=== PATIENT | male | born 2000 | race Caucasian/White ===

== ENCOUNTER 2022-12-27 09:56 | Observation (INO) ==
[2022-12-27] MEDS ORDERED: KETOROLAC TROMETHAMINE 15 MG/ML VIAL IV ONE (10:35)
--- NOTE | 2022-12-27 10:36 | Emergency Department Note ---
History of Present Illness General Chief complaint: Chest Pain Stated complaint: CHEST PAIN Time Seen by Provider: 12/27/22 10:22 History of Present Illness Maximum Pain Intensity: 7 This is a 22-year-old male that presents to the emergency department via private vehicle referred by [facility] with complaints of "chest pain". The patient notes that he awoke around 2 AM with some back pain and a headache. He then noted that around 3 AM he began with pain all over his body and diffuse body aches as well as chest pain. No trauma or injury that he is aware of. No shortness of breath. No cough. No hemoptysis. 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 He notes no surgery as of yet, noting he believes that in his case surgery was optional. Patient notes that he did have several tests performed at [facility] previously for the AVM. Patient notes that he has otherwise been doing well. He notes that he is currently at the [facility] for evaluation of suicidal thoughts. Patient notes that he is there on a 201 voluntary status. He denies any suicidal ideations at the present time. Reportedly in route patient received 1 nitroglycerin as well as 324 of aspirin. Symptoms are nonexertional. No history of OH or PE. No vertigo. No anticoagulant use. Home Medications Medication Instructions Recorded Confirmed Type acetaminophen 500 mg tablet 1,000 mg PO Q6H PRN Pain 12/27/22 12/27/22 History (Tylenol Extra Strength) Allergies Allergy/AdvReac Type Severity Reaction Status Date / Time methylphenidate AdvReac Muscle Verified 12/27/22 14:03 [From Concerta] twitches Past Med/Surg History Medical History (Updated 12/27/22 @ 21:16 by Franco Okeefe PA-C) Hx of arteriovenous malformation (AVM) Surgical History No pertinent past surgical history Social History Smoking Status: Never smoker Feels Safe at Home: Yes Review of Systems A total of 10 systems reviewed and were otherwise negative Physical Exam Vital Signs Vital Signs - 24 hr 12/27/22 09:59 12/27/22 10:19 12/27/22 10:13 Temperature 37.4 C Temperature Source Oral Pulse Rate 77 79 76 Pulse Rate [Apical] Pulse Rate from SpO2 Sensor 77 Pulse Rhythm [Apical] Respiratory Rate 18 18 Respiratory Effort / Characteristics Non-Labored Spontaneous Respiratory Depth Normal Respiratory Pattern Regular Blood Pressure 153/92 H Blood Pressure [Right Arm] Blood Pressure Mean 112 Blood Pressure Mean [Right Arm] Blood Pressure Position [Right Arm] Pulse Oximetry 98 96 Oxygen Delivery Method Room Air Sepsis Recent Fever Within 48 Hours No Sepsis New/Unexplained Change in Mental Status N/A Sepsis Action Taken by Nursing No Action Required 12/27/22 10:30 12/27/22 10:30 12/27/22 11:00 Temperature Temperature Source Pulse Rate 85 Pulse Rate [Apical] Pulse Rate from SpO2 Sensor 86 Pulse Rhythm [Apical] Respiratory Rate 18 Respiratory Effort / Characteristics Respiratory Depth Respiratory Pattern Blood Pressure 143/69 H 123/71 Blood Pressure [Right Arm] Blood Pressure Mean 93 88 Blood Pressure Mean [Right Arm] Blood Pressure Position [Right Arm] Pulse Oximetry 96 Oxygen Delivery Method Sepsis Recent Fever Within 48 Hours Sepsis New/Unexplained Change in Mental Status Sepsis Action Taken by Nursing 12/27/22 11:00 12/27/22 13:09 12/27/22 14:21 Temperature Temperature Source Pulse Rate 71 90 Pulse Rate [Apical] 62 Pulse Rate from SpO2 Sensor 81 Pulse Rhythm [Apical] Regular Respiratory Rate 19 18 Respiratory Effort / Characteristics Non-Labored Spontaneous Respiratory Depth Normal Respiratory Pattern Regular Blood Pressure Blood Pressure [Right Arm] 109/61 Blood Pressure Mean Blood Pressure Mean [Right Arm] 77 Blood Pressure Position [Right Arm] Lying Pulse Oximetry 96 94 Oxygen Delivery Method Room Air Sepsis Recent Fever Within 48 Hours Sepsis New/Unexplained Change in Mental Status Sepsis Action Taken by Nursing 12/27/22 15:09 Temperature Temperature Source Pulse Rate Pulse Rate [Apical] 114 H Pulse Rate from SpO2 Sensor Pulse Rhythm [Apical] Respiratory Rate 16 Respiratory Effort / Characteristics Non-Labored Spontaneous Respiratory Depth Normal Respiratory Pattern Regular Blood Pressure Blood Pressure [Right Arm] 129/82 Blood Pressure Mean Blood Pressure Mean [Right Arm] 97 Blood Pressure Position [Right Arm] Lying Pulse Oximetry 97 Oxygen Delivery Method Room Air Sepsis Recent Fever Within 48 Hours Sepsis New/Unexplained Change in Mental Status Sepsis Action Taken by Nursing VITAL SIGNS - Vital signs and nursing notes were reviewed. Stable and afebrile. GENERAL - 22-year-old male appearing his stated age who is in no acute distress. Communicates well with provider and answers questions appropriately. SKIN - Without rashes. No meningeal or petechial rash. HEAD - NC/AT. EYES - PERRL with EOMI bilaterally. Sclera anicteric. EARS - No deformities of external structures noted on gross examination bila terally. External auditory canals without discharge or otorrhea. Tympanic membranes pearly agrawal without retraction or bulging. No fluid or purulent material visualized behind the TM. Handle of malleus, umbo, cone of light, pars tensa/flaccid all easily visualized. NOSE - Midline and without cyanosis. No epistaxis or purulent drainage noted. Septum midline without deviation or septal hematoma noted. MOUTH/OROPHARYNX - Without perioral cyanosis. Buccal mucosa pink and moist and without leukoplakia. Tongue midline with equal elevation of palate bilaterally. No tonsillar hypertrophy, erythema, or exudates noted. Good dentition noted. NECK - Neck with FROM. Supple to palpation. No lymphadenopathy noted. No nuchal rigidity. LUNGS - Chest wall symmetric without accessory muscle use, intercostals retractions, or central cyanosis. Normal vesicular breath sounds CTA B/L. No wheezes, rales, or rhonchi appreciated. CARDIAC - RRR ABDOMEN - Abdominal contour normal without pulsations or visible masses. BS normoactive all four quadrants. No tenderness, palpable masses, hepatosplenomegaly, or ascites noted. EXTREMITIES - No clubbing or peripheral cyanosis. +5/5 strength noted in UE/LE bilaterally. NEUROLOGIC - Cranial nerves II through XII grossly intact. No deficits. Patient able to independently stand and ambulate. PSYCH - A&Ox3 and cooperates fully with examiner. Pt is very pleasant and interacts well with examiner. Course Administered Medications Discontinued Medications Sodium Chloride (Nss 1000ml) 1,000 mls @ 999 mls/hr IV .Q1H1M STEVE Stop: 12/27/22 14:45 Last Infusion: 12/27/22 14:45 Dose: 0 mls/hr Documented By: Admin: 12/27/22 13:38 Dose: 999 mls/hr Documented By: Ioversol (Optiray 320 125ml) 119 ml IV ONCE ONE Stop: 12/27/22 16:25 Last Admin: 12/27/22 16:24 Dose: 119 ml Documented By: ISABELLE Ketorolac Tromethamine (Ketorolac Tromethamine 15 Mg/Ml Vial) 10 mg IV NOW ONE Stop: 12/27/22 10:36 Last Admin: 12/27/22 10:51 Dose: 10 mg Documented By: KELECHI Medical Decision Making Laboratory Data 12/27/22 10:03 12/27/22 10:03 Lab Results 12/27/22 12/27/22 12/27/22 Range/Units 10:03 10:03 10:03 WBC 6.75 (4.8-10.8) K/ul RBC 5.84 (4.70-6.10) M/uL Hgb 16.8 (14.0-18.0) g/dl Hct 47.6 (42.0-52.0) % MCV 81.5 (80.0-100.0) fL MCH 28.8 (25.0-34.0) pg MCHC 35.3 (32.0-36.0) g/dL RDW Std Deviation 38.5 (36.4-46.3) fL RDW Coeff of Wilfredo 13.2 (11.5-14.5) % Plt Count 231 (130-400) K/uL MPV 10.5 (9.4-12.4) fL Immature Gran % (Auto) 1.0 % Neut % (Auto) 46.8 % Lymph % (Auto) 43.4 % Gates % (Auto) 7.1 % Eos % (Auto) 1.3 % Baso % (Auto) 0.4 % Neut # (Auto) 3.15 (1.40-6.50) K/uL Lymph # (Auto) 2.93 (1.2-3.4) K/uL Gates # (Auto) 0.48 (0.11-0.59) K/uL Eos # (Auto) 0.09 (0-0.50) K/uL Baso # (Auto) 0.03 (0-0.2) K/uL Immature Gran # (Auto) 0.07 (0.01-0.20) K/uL PT 11.3 (9.0-12.0) Seconds INR 1.0 (0.9-1.1) APTT 29.8 (21.0-31.0) Seconds PTT Ratio 1.1 D-Dimer < 190 (0-500) ug/L FEU Sodium 137 (136-145) mmol/L Potassium 3.3 L (3.5-5.1) mmol/L Chloride 102 (98-107) mmol/L Carbon Dioxide 30 (21-32) mmol/L Anion Gap 5 (3-11) BUN 12 (6-23) mg/dl Creatinine 0.98 (0.6-1.4) mg/dl Est Cr Clr Drug Dosing 135.1 ml/min Est GFR ( Amer) 124.6 ml/min Est GFR (Non-Af Amer) 107.5 ml/min BUN/Creatinine Ratio 12.2 (10-20) Glucose 69 L (70-99(Fasting)) mg/dl POC Glucose (70-99) mg/dl Calcium 9.5 (8.6-10.3) mg/dl Magnesium 2.2 (1.7-2.4) mg/dl Total Bilirubin 0.7 (0.2-1.0) mg/dl AST 22 (13-39) U/L ALT 31 (7-52) U/L Alkaline Phosphatase 64 (34-104) U/L Troponin I High Sens 5.8 (0-20) pg/ml Total Protein 7.5 (6.0-8.3) gm/dl Albumin 4.7 (3.4-5.0) gm/dl Globulin 2.8 (2.5-4.0) gm/dl Albumin/Globulin Ratio 1.7 (0.9-2) Urine Color Urine Appearance (Clear) Urine pH (4.5-7.5) Ur Specific [place] (1.000-1.030) Urine Protein (Negative) Urine Glucose (UA) (Negative) Urine Ketones (Negative) Urine Blood (Negative) Urine Nitrite (Negative) Urine Bilirubin (Negative) Urine Urobilinogen (Negative) Ur Leukocyte Esterase (Negative) Urine Opiates Screen (Neg) Ur Methadone, Qual (Neg) Urine Barbiturates (Neg) Ur Phencyclidine (PCP) (Neg) U Amphetamin/Meth Scrn (Neg) MDMA (Ecstasy) Screen (Neg) U Benzodiazepines Scrn (Neg) Ur Cocaine Metabolite (Neg) U Marijuana (THC) Screen (Neg) Adenovirus (PCR) (NotDetected) Anaplasma Smear See Comment B. pertussis DNA (PCR) (NotDetected) B.parapertussis DNA PCR (NotDetected) Lyme Disease IgG Ab (Negative) Lyme Disease IgM Ab (Negative) C. pneumoniae DNA (PCR) (NotDetected) Coronavirus OC43 (PCR) (NotDetected) Coronavirus HKU1 (PCR) (NotDetected) Coronavirus 229E (PCR) (NotDetected) SARS-CoV-2 (PCR) (NotDetected) Coronavirus NL63 (PCR) (NotDetected) Human Metapneumovir PCR (NotDetected) Influenza Type A (PCR) (NotDetected) Influenza Type B (PCR) (NotDetected) M. pneumoniae (PCR) (NotDetected) Parainfluenza 1 (PCR) (NotDetected) Parainfluenza 2 (PCR) (NotDetected) Parainfluenza 3 (PCR) (NotDetected) Parainfluenza 4 (PCR) (NotDetected) RSV (PCR) (NotDetected) Entero/Rhino (PCR) (NotDetected) 12/27/22 12/27/22 12/27/22 Range/Units 10:03 12:59 13:10 WBC (4.8-10.8) K/ul RBC (4.70-6.10) M/uL Hgb (14.0-18.0) g/dl Hct (42.0-52.0) % MCV (80.0-100.0) fL MCH (25.0-34.0) pg MCHC (32.0-36.0) g/dL RDW Std Deviation (36.4-46.3) fL RDW Coeff of Wilfredo (11.5-14.5) % Plt Count (130-400) K/uL MPV (9.4-12.4) fL Immature Gran % (Auto) % Neut % (Auto) % Lymph % (Auto) % Gates % (Auto) % Eos % (Auto) % Baso % (Auto) % Neut # (Auto) (1.40-6.50) K/uL Lymph # (Auto) (1.2-3.4) K/uL Gates # (Auto) (0.11-0.59) K/uL Eos # (Auto) (0-0.50) K/uL Baso # (Auto) (0-0.2) K/uL Immature Gran # (Auto) (0.01-0.20) K/uL PT (9.0-12.0) Seconds INR (0.9-1.1) APTT (21.0-31.0) Seconds PTT Ratio D-Dimer (0-500) ug/L FEU Sodium (136-145) mmol/L Potassium (3.5-5.1) mmol/L Chloride (98-107) mmol/L Carbon Dioxide (21-32) mmol/L Anion Gap (3-11) BUN (6-23) mg/dl Creatinine (0.6-1.4) mg/dl Est Cr Clr Drug Dosing ml/min Est GFR ( Amer) ml/min Est GFR (Non-Af Amer) ml/min BUN/Creatinine Ratio (10-20) Glucose (70-99(Fasting)) mg/dl POC Glucose (70-99) mg/dl Calcium (8.6-10.3) mg/dl Magnesium (1.7-2.4) mg/dl Total Bilirubin (0.2-1.0) mg/dl AST (13-39) U/L ALT (7-52) U/L Alkaline Phosphatase (34-104) U/L Troponin I High Sens 4.2 (0-20) pg/ml Total Protein (6.0-8.3) gm/dl Albumin (3.4-5.0) gm/dl Globulin (2.5-4.0) gm/dl Albumin/Globulin Ratio (0.9-2) Urine Color Urine Appearance (Clear) Urine pH (4.5-7.5) Ur Specific [place] (1.000-1.030) Urine Protein (Negative) Urine Glucose (UA) (Negative) Urine Ketones (Negative) Urine Blood (Negative) Urine Nitrite (Negative) Urine Bilirubin (Negative) Urine Urobilinogen (Negative) Ur Leukocyte Esterase (Negative) Urine Opiates Screen (Neg) Ur Methadone, Qual (Neg) Urine Barbiturates (Neg) Ur Phencyclidine (PCP) (Neg) U Amphetamin/Meth Scrn (Neg) MDMA (Ecstasy) Screen (Neg) U Benzodiazepines Scrn (Neg) Ur Cocaine Metabolite (Neg) U Marijuana (THC) Screen (Neg) Adenovirus (PCR) Not Detected (NotDetected) Anaplasma Smear B. pertussis DNA (PCR) Not Detected (NotDetected) B.parapertussis DNA PCR Not Detected (NotDetected) Lyme Disease IgG Ab Negative (Negative) Lyme Disease IgM Ab Negative (Negative) C. pneumoniae DNA (PCR) Not Detected (NotDetected) Coronavirus OC43 (PCR) Not Detected (NotDetected) Coronavirus HKU1 (PCR) Not Detected (NotDetected) Coronavirus 229E (PCR) Not Detected (NotDetected) SARS-CoV-2 (PCR) Not Detected (NotDetected) Coronavirus NL63 (PCR) Not Detected (NotDetected) Human Metapneumovir PCR Not Detected (NotDetected) Influenza Type A (PCR) Not Detected (NotDetected) Influenza Type B (PCR) Not Detected (NotDetected) M. pneumoniae (PCR) Not Detected (NotDetected) Parainfluenza 1 (PCR) Not Detected (NotDetected) Parainfluenza 2 (PCR) Not Detected (NotDetected) Parainfluenza 3 (PCR) Not Detected (NotDetected) Parainfluenza 4 (PCR) Not Detected (NotDetected) RSV (PCR) Not Detected (NotDetected) Entero/Rhino (PCR) Not Detected (NotDetected) 12/27/22 12/27/22 12/27/22 Range/Units 14:30 14:30 15:25 WBC (4.8-10.8) K/ul RBC (4.70-6.10) M/uL Hgb (14.0-18.0) g/dl Hct (42.0-52.0) % MCV (80.0-100.0) fL MCH (25.0-34.0) pg MCHC (32.0-36.0) g/dL RDW Std Deviation (36.4-46.3) fL RDW Coeff of Wilfredo (11.5-14.5) % Plt Count (130-400) K/uL MPV (9.4-12.4) fL Immature Gran % (Auto) % Neut % (Auto) % Lymph % (Auto) % Gates % (Auto) % Eos % (Auto) % Baso % (Auto) % Neut # (Auto) (1.40-6.50) K/uL Lymph # (Auto) (1.2-3.4) K/uL [place] # (Auto) (0.11-0.59) K/uL Eos # (Auto) (0-0.50) K/uL Baso # (Auto) (0-0.2) K/uL Immature Gran # (Auto) (0.01-0.20) K/uL PT (9.0-12.0) Seconds INR (0.9-1.1) APTT (21.0-31.0) Seconds PTT Ratio D-Dimer (0-500) ug/L FEU Sodium (136-145) mmol/L Potassium (3.5-5.1) mmol/L Chloride (98-107) mmol/L Carbon Dioxide (21-32) mmol/L Anion Gap (3-11) BUN (6-23) mg/dl Creatinine (0.6-1.4) mg/dl Est Cr Clr Drug Dosing ml/min Est GFR ( Amer) ml/min Est GFR (Non-Af Amer) ml/min BUN/Creatinine Ratio (10-20) Glucose (70-99(Fasting)) mg/dl POC Glucose 86 (70-99) mg/dl Calcium (8.6-10.3) mg/dl Magnesium (1.7-2.4) mg/dl Total Bilirubin (0.2-1.0) mg/dl AST (13-39) U/L ALT (7-52) U/L Alkaline Phosphatase (34-104) U/L Troponin I High Sens (0-20) pg/ml Total Protein (6.0-8.3) gm/dl Albumin (3.4-5.0) gm/dl Globulin (2.5-4.0) gm/dl Albumin/Globulin Ratio (0.9-2) Urine Color Yellow Urine Appearance Clear (Clear) Urine pH 7.0 (4.5-7.5) Ur Specific [place] 1.009 (1.000-1.030) Urine Protein Negative (Negative) Urine Glucose (UA) Negative (Negative) Urine Ketones Negative (Negative) Urine Blood Negative (Negative) Urine Nitrite Negative (Negative) Urine Bilirubin Negative (Negative) Urine Urobilinogen Negative (Negative) Ur Leukocyte Esterase Negative (Negative) Urine Opiates Screen Neg (Neg) Ur Methadone, Qual Neg (Neg) Urine Barbiturates Neg (Neg) Ur Phencyclidine (PCP) Neg (Neg) U Amphetamin/Meth Scrn Neg (Neg) MDMA (Ecstasy) Screen Neg (Neg) U Benzodiazepines Scrn Neg (Neg) Ur Cocaine Metabolite Neg (Neg) U Marijuana (THC) Screen Neg (Neg) Adenovirus (PCR) (NotDetected) Anaplasma Smear B. pertussis DNA (PCR) (NotDetected) B.parapertussis DNA PCR (NotDetected) Lyme Disease IgG Ab (Negative) Lyme Disease IgM Ab (Negative) C. pneumoniae DNA (PCR) (NotDetected) Coronavirus OC43 (PCR) (NotDetected) Coronavirus HKU1 (PCR) (NotDetected) Coronavirus 229E (PCR) (NotDetected) SARS-CoV-2 (PCR) (NotDetected) Coronavirus NL63 (PCR) (NotDetected) Human Metapneumovir PCR (NotDetected) Influenza Type A (PCR) (NotDetected) Influenza Type B (PCR) (NotDetected) M. pneumoniae (PCR) (NotDetected) Parainfluenza 1 (PCR) (NotDetected) Parainfluenza 2 (PCR) (NotDetected) Parainfluenza 3 (PCR) (NotDetected) Parainfluenza 4 (PCR) (NotDetected) RSV (PCR) (NotDetected) Entero/Rhino (PCR) (NotDetected) 12/27/22 Range/Units 15:53 WBC (4.8-10.8) K/ul RBC (4.70-6.10) M/uL Hgb (14.0-18.0) g/dl Hct (42.0-52.0) % MCV (80.0-100.0) fL MCH (25.0-34.0) pg MCHC (32.0-36.0) g/dL RDW Std Deviation (36.4-46.3) fL RDW Coeff of Wilfredo (11.5-14.5) % Plt Count (130-400) K/uL MPV (9.4-12.4) fL Immature Gran % (Auto) % Neut % (Auto) % Lymph % (Auto) % [place] % (Auto) % Eos % (Auto) % Baso % (Auto) % Neut # (Auto) (1.40-6.50) K/uL Lymph # (Auto) (1.2-3.4) K/uL [place] # (Auto) (0.11-0.59) K/uL Eos # (Auto) (0-0.50) K/uL Baso # (Auto) (0-0.2) K/uL Immature Gran # (Auto) (0.01-0.20) K/uL PT (9.0-12.0) Seconds INR (0.9-1.1) APTT (21.0-31.0) Seconds PTT Ratio D-Dimer (0-500) ug/L FEU Sodium (136-145) mmol/L Potassium (3.5-5.1) mmol/L Chloride (98-107) mmol/L Carbon Dioxide (21-32) mmol/L Anion Gap (3-11) BUN (6-23) mg/dl Creatinine (0.6-1.4) mg/dl Est Cr Clr Drug Dosing ml/min Est GFR ( Amer) ml/min Est GFR (Non-Af Amer) ml/min BUN/Creatinine Ratio (10-20) Glucose (70-99(Fasting)) mg/dl POC Glucose 91 (70-99) mg/dl Calcium (8.6-10.3) mg/dl Magnesium (1.7-2.4) mg/dl Total Bilirubin (0.2-1.0) mg/dl AST (13-39) U/L ALT (7-52) U/L Alkaline Phosphatase (34-104) U/L Troponin I High Sens (0-20) pg/ml Total Protein (6.0-8.3) gm/dl Albumin (3.4-5.0) gm/dl Globulin (2.5-4.0) gm/dl Albumin/Globulin Ratio (0.9-2) Urine Color Urine Appearance (Clear) Urine pH (4.5-7.5) Ur Specific [place] (1.000-1.030) Urine Protein (Negative) Urine Glucose (UA) (Negative) Urine Ketones (Negative) Urine Blood (Negative) Urine Nitrite (Negative) Urine Bilirubin (Negative) Urine Urobilinogen (Negative) Ur Leukocyte Esterase (Negative) Urine Opiates Screen (Neg) Ur Methadone, Qual (Neg) Urine Barbiturates (Neg) Ur Phencyclidine (PCP) (Neg) U Amphetamin/Meth Scrn (Neg) MDMA (Ecstasy) Screen (Neg) U Benzodiazepines Scrn (Neg) Ur Cocaine Metabolite (Neg) U Marijuana (THC) Screen (Neg) Adenovirus (PCR) (NotDetected) Anaplasma Smear B. pertussis DNA (PCR) (NotDetected) B.parapertussis DNA PCR (NotDetected) Lyme Disease IgG Ab (Negative) Lyme Disease IgM Ab (Negative) C. pneumoniae DNA (PCR) (NotDetected) Coronavirus OC43 (PCR) (NotDetected) Coronavirus HKU1 (PCR) (NotDetected) Coronavirus 229E (PCR) (NotDetected) SARS-CoV-2 (PCR) (NotDetected) Coronavirus NL63 (PCR) (NotDetected) Human Metapneumovir PCR (NotDetected) Influenza Type A (PCR) (NotDetected) Influenza Type B (PCR) (NotDetected) M. pneumoniae (PCR) (NotDetected) Parainfluenza 1 (PCR) (NotDetected) Parainfluenza 2 (PCR) (NotDetected) Parainfluenza 3 (PCR) (NotDetected) Parainfluenza 4 (PCR) (NotDetected) RSV (PCR) (NotDetected) Entero/Rhino (PCR) (NotDetected) Imaging Data Radiologist's Impression: Chest X-Ray 12/27/22 10:34 XR chest 1V portable CLINICAL HISTORY: Atypical chest pain. COMPARISON STUDY: No previous studies for comparison. FINDINGS: Lung volumes are normal. Lungs are clear. There is no pneumothorax or pleural effusion. Cardiac size is normal. Mediastinal contours are normal. There is no evidence for pulmonary edema. Interstitial prominence is probably within normal limits. IMPRESSION: No acute cardiopulmonary findings. ACT 112: Negative or not required by law. Electronically signed by: Breezy Avery M.D. 12/27/2022 10:[address] 12/27/22 12:30 CT OF THE HEAD WITHOUT CONTRAST CLINICAL HISTORY: Headache. COMPARISON STUDY: No previous studies for comparison. CT DOSE: 703.85 mGy.cm TECHNIQUE: Helical axial images of the head were obtained without IV contrast. Automated exposure control was utilized for the study. A dose lowering technique was utilized adhering to the principles of ALARA. FINDINGS: No acute intracranial hemorrhage, midline shift or mass effect is present. The ventricular system is unremarkable. The basal cisterns are patent. No extra-axial collections are present. There are no findings to suggest acute dural sinus thrombosis or acute territorial infarct. No significant calvarial abnormalities are present. Visualized portions of the sinuses and mastoid air cells are clear. IMPRESSION: No acute intracranial findings. ACT 112: Negative or not required by law. Electronically signed by: Breezy Avery M.D. 12/27/2022 12:53 PM Head CTA 12/27/22 16:04 CT ANGIOGRAM OF THE BRAIN; CT ANGIOGRAM OF THE NECK CLINICAL HISTORY: Lightheadedness. Near syncope. COMPARISON STUDY: Unenhanced CT of the brain performed the same day 12/28/2027. TECHNIQUE: Following the IV administration of 119 of Optiray 320, CT angiogram of the head and neck was performed from the aortic arch to the vertex. Images are reviewed in the axial, sagittal, and coronal planes. 3-D MIPS images are created and assessed. IV contrast was administered without complication. All measurements were calculated based on NASCET criteria. A dose lowering techn ique was utilized adhering to the principles of ALARA. FINDINGS: Brain parenchyma: The brain parenchyma is normal in appearance. There is no evidence of hemorrhage, mass effect, or acute territorial ischemia noting angiographic phase technique. There is no evidence of enhancing mass lesion on the angiogram phase images. The ventricles, sulci, and cisterns are normal in configuration. Agrawal-white matter differentiation is preserved. No extra-axial fluid collection is seen. Thoracic aorta: Visualized portions of the thoracic aorta are normal in caliber. The aortic arch demonstrates 3-vessel variant anatomy. There is a bovine arch, and the left vertebral artery arises directly from the thoracic aorta. Right carotid arterial system: The right common carotid artery is widely patent, as are the right internal and external carotid arteries. Left carotid arterial system: The left common carotid artery is widely patent, as are the left internal and external carotid arteries. Vertebral arteries: The vertebral arteries are widely patent bilaterally noting right sided dominance. Subclavian arteries: Widely patent bilaterally. Intracranial vasculature: The internal carotid arteries are patent at the skull base, as are the anterior and middle cerebral arteries bilaterally. The vertebrobasilar system and posterior cerebral arteries are widely patent. The right vertebral artery is dominant. There is a large right posterior communicating artery. There is no aneurysm, high-grade stenosis, or focal vessel cut off seen throughout the intracranial circulation. Jugular veins: Patent bilaterally. Dural sinuses: The dural venous sinuses are patent. The left transverse sinus is diminutive. Lung apices: Partially visualized upper lobe lung parenchyma appears clear. Soft tissues: The visualized pharyngeal soft tissues are normal in appearance noting angiographic phase technique. The oropharyngeal airway appears widely patent. The salivary and thyroid glands are normal in appearance. No cervical lymphadenopathy is seen. Skeletal structures: The calvarium appears intact. The cervical spine is within normal limits. Orbits: The bony orbits are intact. Orbital contents are normal as visualized. Sinuses and mastoids: There is trace mucosal thickening in the left maxillary antrum. The remaining paranasal sinuses are clear. The mastoid air cells are well pneumatized. IMPRESSION: 1. There is no evidence of hemorrhage, mass effect, or acute territorial ischemia noting angiographic phase technique. 2. Unremarkable CT angiogram of the brain. 3. Unremarkable CT angiogram of the neck. ACT 112: Negative or not required by law. Electronically signed by: Alex Boykin M.D. 12/27/2022 4:43 PM Neck CTA 12/27/22 16:04 CT ANGIOGRAM OF THE BRAIN; CT ANGIOGRAM OF THE NECK CLINICAL HISTORY: Lightheadedness. Near syncope. COMPARISON STUDY: Unenhanced CT of the brain performed the same day 12/28/2027. TECHNIQUE: Following the IV administration of 119 of Optiray 320, CT angiogram of the head and neck was performed from the aortic arch to the vertex. Images are reviewed in the axial, sagittal, and coronal planes. 3-D MIPS images are created and assessed. IV contrast was administered without complication. All measurements were calculated based on NASCET criteria. A dose lowering technique was utilized adhering to the principles of ALARA. FINDINGS: Brain parenchyma: The brain parenchyma is normal in appearance. There is no evidence of hemorrhage, mass effect, or acute territorial ischemia noting angiographic phase technique. There is no evidence of enhancing mass lesion on the angiogram phase images. The ventricles, sulci, and cisterns are normal in configuration. Agrawal-white matter differentiation is preserved. No extra-axial fluid collection is seen. Thoracic aorta: Visualized portions of the thoracic aorta are normal in caliber. The aortic arch demonstrates 3-vessel variant anatomy. There is a bovine arch, and the left vertebral artery arises directly from the thoracic aorta. Right carotid arterial system: The right common carotid artery is widely patent, as are the right internal and external carotid arteries. Left carotid arterial system: The left common carotid artery is widely patent, as are the left internal and external carotid arteries. Vertebral arteries: The vertebral arteries are widely patent bilaterally noting right sided dominance. Subclavian arteries: Widely patent bilaterally. Intracranial vasculature: The internal carotid arteries are patent at the skull base, as are the anterior and middle cerebral arteries bilaterally. The vertebrobasilar system and posterior cerebral arteries are widely patent. The right vertebral artery is dominant. There is a large right posterior communicating artery. There is no aneurysm, high-grade stenosis, or focal vessel cut off seen throughout the intracranial circulation. Jugular veins: Patent bilaterally. Dural sinuses: The dural venous sinuses are patent. The left transverse sinus is diminutive. Lung apices: Partially visualized upper lobe lung parenchyma appears clear. Soft tissues: The visualized pharyngeal soft tissues are normal in appearance noting angiographic phase technique. The oropharyngeal airway appears widely patent. The salivary and thyroid glands are normal in appearance. No cervical lymphadenopathy is seen. Skeletal structures: The calvarium appears intact. The cervical spine is within normal limits. Orbits: The bony orbits are intact. Orbital contents are normal as visualized. Sinuses and mastoids: There is trace mucosal thickening in the left maxillary antrum. The remaining paranasal sinuses are clear. The mastoid air cells are well pneumatized. IMPRESSION: 1. There is no evidence of hemorrhage, mass effect, or acute territorial ischemia noting angiographic phase technique. 2. Unremarkable CT angiogram of the brain. 3. Unremarkable CT angiogram of the neck. ACT 112: Negative or not required by law. Electronically signed by: Alex Boykin M.D. 12/27/2022 4:43 PM Chest CTA 12/27/22 16:14 CT angio chest w con CT DOSE: 1223.15 mGy.cm CLINICAL HISTORY: Atypical chest pain, hx of pulmonary AVM TECHNIQUE: Multiaxial CT images of the chest were performed following the intravenous administration of 119 cc of Optiray 320 to evaluate the aorta. Sagittal and coronal maximum intensity projection images were also obtained at the workstation by the radiologist. A dose lowering technique was utilized adhering to the principles of ALARA. COMPARISON STUDY: None. FINDINGS: Normal caliber thoracic aorta with no evidence for a dissection. The heart is top normal in size. The main pulmonary artery is dilated up to 3.9 cm. This is consistent with pulmonary arterial hypertension. The study was not protocoled to assess for a pulmonary embolus. However, the central pulmonary arteries appear patent. There is a right middle lobe pulmonary AVM. The dilated vessels measure up to 8 mm in diameter and appear patent. The thyroid gland enhances normally. Normal esophagus. No pleural or pericardial effusions. No mediastinal or hilar lymphadenopathy. Limited views of the upper abdomen demonstrate a normal liver, spleen, adrenal glands. No acute fractures identified. No pneumothorax. The central airways are patent. No focal lung consolidations to suggest a pneumonia. No evidence for pulmonary edema. There is a punctate calcified granuloma within the right upper lobe. IMPRESSION: 1. No evidence for an aortic dissection. 2. Dilated main pulmonary artery consistent with pulmonary arterial hypertension. 3. No evidence for a central pulmonary embolus. 4. Incidental note is made of a right middle lobe pulmonary AVM. ACT 112: Negative or not required by law. Electronically signed by: Casey Fuller M.D. 12/27/2022 4:49 PM MDM Narrative Patient was seen and evaluated as above in room A03. Review was performed of triage nursing notes and vital signs. I did review accompanying medical record as provided by [facility]. Patient has several symptoms that began earlier today. He notes back pain, headache, followed by diffuse body ach es and then chest pain. Patient does not have any shortness of breath or cough. There is no hemoptysis. Patient has a history of pulmonary AVM. On examination patient is clinically well-appearing and nontoxic. He is speaking in full sentences. He is in no acute distress. After obtaining a thorough history and physical examination the above work up was performed. Options of care were discussed with the patient. IV access was established. Labs were performed. Labs reveal no leukocytosis or concerning anemia. No emergent metabolic disturbance. Mild hypokalemia 3.3. Glucose found to be 69 and the patient was provided some yogi crackers here and saltine crackers as well as Powerade. Repeat glucose within normal limits. Troponin was obtained x2 here in the ED and was found to be within normal range both times. D-dimer normal as well. The patient underwent Lyme testing here and this was also negative. Anaplasmosis smear negative. Anaplasma send out test currently pending. Bio fire panel returned negative. Patient also underwent a chest x- ray here which was within normal limits. Patient was medicated with IV Toradol for his discomfort with improvement of discomfort but headache persisted. This is diffuse in nature without signs of trauma or injury. There is no evidence of CVA on examination. Patient has not had much to eat or drink today. IV fluids were ordered in addition to CT scan of the head. CT scan of the head was negative. Patient was reassessed multiple times and did note that he felt lightheaded when he would stand and move. This was despite intravenous fluids and oral rehydration here in the ED. The patient did note on reassessment that he attempted to go to the bathroom and while ambulating nearly fell and had to catch himself. It is important note the patient did not fall. Noting the persistence of near syncopal/lightheaded episodes with ambulation and standing, I do believe that further evaluation and management in the inpatient setting is warranted. Case discussed with the hospitalist service. Upon discussion of the case with hospitalist service recommendation was to proceed with CT angio head and neck which was added. Hospitalist also had a CT angio of the chest. Please refer to further documentation regarding his stay. EKG was obtained and reveals normal sinus rhythm at a rate of 81 bpm. QTc 425. QRS 120. No ST elevation. T wave inversion lead III, V1. GCS: 15 In the evaluation and treatment of this patient the following differential diagnoses were entertained: Dehydration, CVA, TIA, orthostatic hypotension, electrolyte disturbance, viral illness, Lyme disease, complication of pulmonary AVM, among others. Impression & Plan Chest pain, Light-headedness, Headache, Pulmonary arteriovenous malformation Discharge Plan Visit Data Chief Complaint: Chest Pain Stated Complaint: CHEST PAIN ED Provider: Familia Alberto ED Midlevel Provider: Franco Okeefe Discharge Problem: Chest pain, Light-headedness, Headache, Pulmonary arteriovenous malformation Patient Disposition: Admitted As Inpatient Condition: Good Discharge Instructions Interventions: ED Discharge Assessment Last Done: 12/27/22 19:58
--- NOTE | 2022-12-27 10:57 | XRay Report ---
XR chest 1V portable CLINICAL HISTORY: Atypical chest pain. COMPARISON STUDY: No previous studies for comparison. FINDINGS: Lung volumes are normal. Lungs are clear. There is no pneumothorax or pleural effusion. Car diac size is normal. Mediastinal contours are normal. There is no evidence for pulmonary edema. Inter stitial prominence is probably within normal limits. IMPRESSION: No acute cardiopulmonary findings. ACT 112: Negative or not required by law. Electronically signed by: Breezy Avery M.D. 12/27/2022 10:56 AM
[2022-12-27 11:27] LABS: Basophils # (auto) 0.03 K/uL (0-0.2); Basophils % (auto) 0.4 %; Eosinophils # (auto) 0.09 K/uL (0-0.50); Eosinophils % (auto) 1.3 %; Hematocrit (blood only) 47.6 % (42.0-52.0); Hemoglobin 16.8 g/dl (14.0-18.0); Immature Granulocytes # (auto) 0.07 K/uL (0.01-0.20); Lymphocytes # (auto) 2.93 K/uL (1.2-3.4); Lymphocytes % (auto) 43.4 %; Mean Corpuscular Hemoglobin 28.8 pg (25.0-34.0); Mean Corpuscular Hgb Conc 35.3 g/dL (32.0-36.0); Mean Corpuscular Volume 81.5 fL (80.0-100.0); Mean Platelet Volume 10.5 fL (9.4-12.4); Monocytes # (auto) 0.48 K/uL (0.11-0.59); Monocytes % (auto) 7.1 %; Neutrophils # (auto) 3.15 K/uL (1.40-6.50); Neutrophils % (auto) 46.8 %; Platelet Count 231 K/uL (130-400); RDW Coefficient of Variation 13.2 % (11.5-14.5); RDW Standard Deviation 38.5 fL (36.4-46.3); Red Blood Count 5.84 M/uL (4.70-6.10); White Blood Count 6.75 K/ul (4.8-10.8)
[2022-12-27 11:38] LABS: Albumin Globulin Ratio 1.7 (0.9-2); Albumin Level 4.7 gm/dl (3.4-5.0); BUN Creatinine Ratio 12.2 (10-20); Bilirubin,Total 0.7 mg/dl (0.2-1.0); Calcium 9.5 mg/dl (8.6-10.3); Creatinine Clr Calc Pharmacy 135.1 ml/min; Est GFR (African American) 124.6 ml/min; Est GFR (Non-African American) 107.5 ml/min; Globulin 2.8 gm/dl (2.5-4.0); Magnesium 2.2 mg/dl (1.7-2.4); Potassium 3.3 mmol/L (3.5-5.1); Total Protein 7.5 gm/dl (6.0-8.3)
[2022-12-27 11:45] LABS: Troponin I High Sensitivity 5.8 pg/ml (0-20)
[2022-12-27 11:46] LABS: D Dimer < 190 ug/L FEU (0-500); Partial Thromboplastin Ratio 1.1; Partial Thromboplastin Time 29.8 Seconds (21.0-31.0); Prothrombin Time 11.3 Seconds (9.0-12.0)
[2022-12-27 12:22] LABS: Lyme Ab IgG w/WB Rflx Negative (Negative)
[2022-12-27 12:23] LABS: Lyme Ab IgM w/WB Rflx Negative (Negative)
--- NOTE | 2022-12-27 12:55 | CT Scan Report ---
CT OF THE HEAD WITHOUT CONTRAST CLINICAL HISTORY: Headache. COMPARISON STUDY: No previous studies for comparison. CT DOSE: 703.85 mGy.cm TECHNIQUE: Helical axial images of the head were obtained without IV contrast. Automated exposure con trol was utilized for the study. A dose lowering technique was utilized adhering to the principles o f ALARA. FINDINGS: No acute intracranial hemorrhage, midline shift or mass effect is present. The ventricular system is unremarkable. The basal cisterns are patent. No extra-axial collections are present. There are no findings to suggest acute dural sinus thrombosis or acute territorial infarct. No significant calvarial abnormalities are present. Visualized portions of the sinuses and mastoid air cells are machelle ar. IMPRESSION: No acute intracranial findings. ACT 112: Negative or not required by law. Electronically signed by: Breezy Avery M.D. 12/27/2022 12:53 PM
[2022-12-27] MEDS ORDERED: SODIUM CHLORIDE 0.9% 1000ML 1,000 ML IV SCH (13:45)
[2022-12-27 14:13] LABS: Adenovirus PCR Not Detected (NotDetected); Bordetella parapertussis PCR Not Detected (NotDetected); Bordetella pertussis PCR Not Detected (NotDetected); Chlamydia pneumoniae PCR Not Detected (NotDetected); Coronavirus 229E PCR Not Detected (NotDetected); Coronavirus CoV-2 (COVID19)PCR Not Detected (NotDetected); Coronavirus HKU1 PCR Not Detected (NotDetected); Coronavirus NL63 PCR Not Detected (NotDetected); Coronavirus OC43PCR Not Detected (NotDetected); Human Metapneumovirus PCR Not Detected (NotDetected); Influenza A PCR Not Detected (NotDetected); Influenza B PCR Not Detected (NotDetected); Mycoplasma pneumoniae PCR Not Detected (NotDetected); Parainfluenza Virus 1 PCR Not Detected (NotDetected); Parainfluenza Virus 2 PCR Not Detected (NotDetected); Parainfluenza Virus 3 PCR Not Detected (NotDetected); Parainfluenza Virus 4 PCR Not Detected (NotDetected); Respiratory Syncytial VirusPCR Not Detected (NotDetected); Rhinovirus/Enterovirus PCR Not Detected (NotDetected)
[2022-12-27 14:48] LABS: Appearance Urine Clear (Clear); Bilirubin Urine Negative (Negative); Blood Urine Negative (Negative); Color Urine Yellow; Glucose Urine UA Negative (Negative); Ketones Urine Negative (Negative); Leukocyte Esterase Urine Negative (Negative); Nitrite Urine Negative (Negative); Protein Urine Negative (Negative); Specific Gravity Urine 1.009 (1.000-1.030); Urobilinogen Urine Negative (Negative)
[2022-12-27] MEDS ORDERED: OPTIRAY 320 125ml IV ONE (16:24)
--- NOTE | 2022-12-27 16:24 | History & Physical Report ---
Date of Service December 27, 2022 Assessment & Plan (1) Pre-syncope: Plan: Presyncope with vision change DDx includes orthostasis, vertebrobasilar syndrome. Symptoms are not reversible and are not vertiginous. No hearing change or tinnitus With blurred vision and presyncope without vertigo, and symptoms occurring sometimes with but also in absence of hypotension/standing CTAhead and neck are pending which is extended down to the chest as have not been able to obtain records of his AVM and given his presenting chest pain is reasonable to include this in the evaluation EKG: Normal sinus rhythm, RSR prime suggestive of RV conduction delay. No territorial ST segment changes or T wave inversions. QTc 425. SC 168. Echo pending CTA of the head and neck normal as noted below We will give fluids, follow symptomatically, and obtain echo patient is below Pulmonary AVM CTA-C: 1. No evidence for an aortic dissection. 2. Dilated main pulmonary artery consistent with pulmonary arterial hypertension. 3. No evidence for a central pulmonary embolus. 4. Incidental note is made of a right middle lobe pulmonary AVM. - CTA-H/N: 1. There is no evidence of hemorrhage, mass effect, or acute territorial ischemia noting angiographic phase technique. 2. Unremarkable CT angiogram of the brain.3. Unremarkable CT angiogram of the neck. - AVM RML pulm 8mm in diameter and patent w/ pHTN Patient is no chest pain at the bedside evaluation however given his prior sy mptoms, pulmonary hypertension and 8 mm caliber he should be seen for follow-up for shunt studies and coil/embolization. Recommend following up with Dr. Muse IR as outpt if stable. Patient reports he had 1x outpatient follow-up, but saw someone once and then was lost to follow-up and does not have any scheduled follow-up appointments. Did not think that another appointment was recommended to his knowledge but isn't sure. Depression/anxiety Denies active SI/HI. Reports he has had passive thoughts of suicide which is why he presented to the [facility], but more feels he wants treatment of depression and denies current passive or active SI Reports he feels comfortable reaching out if thoughts of SI develop or worsen, and is future oriented with a goal of getting to the [facility] to treat his depression. Can spot check, defer one-to-on. Patient is with speech with normal prosody, and is a goal-directed linear thought process - Would like to return to [facility] as 201 when stable to do so (2) Hx of arteriovenous malformation (AVM): History of Present Illness Primary Care Provider: Madhav Gasca Don is a 22-year-old male with history of depression who presents to the [facility]. He presents from the [facility] by private vehicle where he was for depression and concerns of passive suicidality, denies active SI/HI and reports he does not have current SI. He notes that he does want to continue treatment for his depression, but this was interrupted by chest pain. He notes that he was seen in [facility] previously for an AVM, but does not know the details regarding this. He reports that he has had lightheadedness and dizziness to some blurred vision on attempted standing and ambulation. Blood pressure is normally in the 120s, is currently in the high 90s. He denies fever, chills, sweats, nausea, vomiting, diarrhea, cough, dysuria, polyuria, diarrhea, constipation. He does endorse intermittent episodes of a feeling of nearly passing out without any room spinning or vertigo which seems to be with exertion but does not always induced By standing up. He reports he has had episodes of severe up to 10/10 chest pain which he attributes to the AVM, while he was walking today and at bedside reports he does not have any chest pain or chest pressure. He has not had any hemoptysis. He reports after Tylenol his initial discomfort improved and again is not in pain at the bedside, it is more his symptoms of nearly passing out which are distressing to him. He does not have any photo or phono sensitivity. His neck does not hurt, and has no pain in his neck on flexion. Denies any limb pain, numbness/tingling. Denies any recent tobacco use, denies recreational substance use, denies vape use. Reports he drinks alcohol intermittently socially, said no alcohol in the last week Medical History: Reviewed Medications: Reviewed Surgical History: Reviewed Family history: Reviewed Allergies: Reviewed Social History: As noted Code Status: Full Allergies Allergy/AdvReac Type Severity Reaction Status Date / Time methylphenidate AdvReac Muscle Verified 12/27/22 14:03 [From EVERFANSa] twitches Home Medications Medication Instructions Recorded Confirmed Type acetaminophen 500 mg tablet 1,000 mg PO Q6H PRN Pain 12/27/22 12/27/22 History (Tylenol Extra Strength) Past Med/Surg History Medical History (Updated 12/27/22 @ 16:22 by Richard Loomis MD) Hx of arteriovenous malformation (AVM) Surgical History No pertinent past surgical history Social History Smoking Status: Never smoker Feels Safe at Home: Yes Review of Systems Review of Systems: All systems reviewed & are unremarkable except as noted in HPI & below Physical Exam Physical Exam: General: A&Ox3. NAD. Cooperative. Answers questions appropriately HEENT: Atraumatic, normocephalic. Vision and hearing grossly intact. No nystagmus Pulm: CTAB A&P. -wheezes, -rales, -rhonchi. Symmetrical chest rise. No increased work of breathing. No respiratory distress. Cardiac: RRR, -mrg. Radial pulses intact and symmetrical. No overlying chest wall tender Abdominal: Nontender, nondistended, soft. BS present. Extremities: Warm, dry. Moves all extremities equally. Sensation soft touch intact in hands and Results & Data Results & Data Vital Signs (Past 12 Hours) Vital Signs Temp Pulse Pulse Resp BP BP Pulse Ox 12/27/22 15:09 114 H 16 129/82 97 12/27/22 14:21 90 12/27/22 13:09 62 18 109/61 94 12/27/22 11:00 71 19 96 12/27/22 11:00 123/71 12/27/22 10:30 85 18 96 12/27/22 10:30 143/69 H 12/27/22 10:13 76 18 96 12/27/22 10:19 79 12/27/22 09:59 37.4 C 77 18 153/92 H 98 O2 Del Method 12/27/22 15:09 Room Air 12/27/22 14:21 12/27/22 13:09 Room Air 12/27/22 11:00 12/27/22 11:00 12/27/22 10:30 12/27/22 10:30 12/27/22 10:13 12/27/22 10:19 12/27/22 09:59 Room Air PG Care Time/CCT Total # of Minutes Spent Total Time Spent with Patient: Total time spent is greater than 50% in coordination of care (as documented) at patient's floor/unit and/or counseling patient: Coding Level of Care Code 96153 INT INP/OBS CARE 2/55MIN Diagnoses Pre-syncope R55 Hx of arteriovenous malformation (AVM) Z87.74
--- NOTE | 2022-12-27 16:45 | CT Scan Report ---
CT ANGIOGRAM OF THE BRAIN; CT ANGIOGRAM OF THE NECK CLINICAL HISTORY: Lightheadedness. Near syncope. COMPARISON STUDY: Unenhanced CT of the brain performed the same day 12/28/2027. TECHNIQUE: Following the IV administration of 119 of Optiray 320, CT angiogram of the head and neck w as performed from the aortic arch to the vertex. Images are reviewed in the axial, sagittal, and risa nal planes. 3-D MIPS images are created and assessed. IV contrast was administered without complicati on. All measurements were calculated based on NASCET criteria. A dose lowering technique was utilize d adhering to the principles of ALARA. FINDINGS: Brain parenchyma: The brain parenchyma is normal in appearance. There is no evidence of hemorrhage, m ass effect, or acute territorial ischemia noting angiographic phase technique. There is no evidence o f enhancing mass lesion on the angiogram phase images. The ventricles, sulci, and cisterns are normal in configuration. Agrawal-white matter differentiation is preserved. No extra-axial fluid collection is seen. Thoracic aorta: Visualized portions of the thoracic aorta are normal in caliber. The aortic arch demo nstrates 3-vessel variant anatomy. There is a bovine arch, and the left vertebral artery arises direc tly from the thoracic aorta. Right carotid arterial system: The right common carotid artery is widely patent, as are the right int ernal and external carotid arteries. Left carotid arterial system: The left common carotid artery is widely patent, as are the left internal grinding machine operator al and external carotid arteries. Vertebral arteries: The vertebral arteries are widely patent bilaterally noting right sided dominance . Subclavian arteries: Widely patent bilaterally. Intracranial vasculature: The internal carotid arteries are patent at the skull base, as are the ante rior and middle cerebral arteries bilaterally. The vertebrobasilar system and posterior cerebral koffi margie are widely patent. The right vertebral artery is dominant. There is a large right posterior comm unicating artery. There is no aneurysm, high-grade stenosis, or focal vessel cut off seen throughout the intracranial circulation. Jugular veins: Patent bilaterally. Dural sinuses: The dural venous sinuses are patent. The left transverse sinus is diminutive. Lung apices: Partially visualized upper lobe lung parenchyma appears clear. Soft tissues: The visualized pharyngeal soft tissues are normal in appearance noting angiographic pha se technique. The oropharyngeal airway appears widely patent. The salivary and thyroid glands are nor mal in appearance. No cervical lymphadenopathy is seen. Skeletal structures: The calvarium appears intact. The cervical spine is within normal limits. Orbits: The bony orbits are intact. Orbital contents are normal as visualized. Sinuses and mastoids: There is trace mucosal thickening in the left maxillary antrum. The remaining p aranasal sinuses are clear. The mastoid air cells are well pneumatized. IMPRESSION: 1. There is no evidence of hemorrhage, mass effect, or acute territorial ischemia noting angiographic phase technique. 2. Unremarkable CT angiogram of the brain. 3. Unremarkable CT angiogram of the neck. ACT 112: Negative or not required by law. Electronically signed by: Alex Boykin M.D. 12/27/2022 4:43 PM
[2022-12-27 16:51] LABS: Amphetamines+Metham, Urine Neg (Neg); Barbiturates, Urine Neg (Neg); Benzodiazepine, Urine Neg (Neg); Cocaine, Urine Neg (Neg); MDMA (Ecstacy), Urine Neg (Neg); Methadone, Urine Neg (Neg); Opiate, Urine Neg (Neg); Phencyclidine, Urine Neg (Neg)
--- NOTE | 2022-12-27 16:51 | CT Scan Report ---
CT angio chest w con CT DOSE: 1223.15 mGy.cm CLINICAL HISTORY: Atypical chest pain, hx of pulmonary AVM TECHNIQUE: Multiaxial CT images of the chest were performed following the intravenous administration of 119 cc of Optiray 320 to evaluate the aorta. Sagittal and coronal maximum intensity projection herminio ges were also obtained at the workstation by the radiologist. A dose lowering technique was utilized adhering to the principles of ALARA. COMPARISON STUDY: None. FINDINGS: Normal caliber thoracic aorta with no evidence for a dissection. The heart is top normal in size. The main pulmonary artery is dilated up to 3.9 cm. This is consistent with pulmonary arterial hypertension. The study was not protocoled to assess for a pulmonary embolus. However, the central pu lmonary arteries appear patent. There is a right middle lobe pulmonary AVM. The dilated vessels measu re up to 8 mm in diameter and appear patent. The thyroid gland enhances normally. Normal esophagus. N o pleural or pericardial effusions. No mediastinal or hilar lymphadenopathy. Limited views of the upp er abdomen demonstrate a normal liver, spleen, adrenal glands. No acute fractures identified. No pneu mothorax. The central airways are patent. No focal lung consolidations to suggest a pneumonia. No kermit dence for pulmonary edema. There is a punctate calcified granuloma within the right upper lobe. IMPRESSION: 1. No evidence for an aortic dissection. 2. Dilated main pulmonary artery consistent with pulmonary arterial hypertension. 3. No evidence for a central pulmonary embolus. 4. Incidental note is made of a right middle lobe pulmonary AVM. ACT 112: Negative or not required by law. Electronically signed by: Casey Fuller M.D. 12/27/2022 4:49 PM
--- NOTE | 2022-12-27 23:33 | Electrocardiogram Report ---
Test Reason : Blood Pressure : / mmHG Vent. Rate : 081 BPM Atrial Rate : 081 BPM P-R Int : 168 ms QRS Dur : 120 ms QT Int : 366 ms P-R-T Axes : 040 -62 018 degrees QTc Int : 425 ms Normal sinus rhythm Right bundle branch block Left anterior fascicular block Abnormal ECG No previous ECGs available Confirmed by Bennie Yost ([id number]) on 12/27/2022 11:32:50 PM Referred By: Confirmed By:Bennie Yost
[2022-12-28] MEDS: ACETAMINOPHEN 325 MG TAB PO PRN ×3 (02:35→19:57)
[2022-12-28 07:17] LABS: Basophils # (auto) 0.04 K/uL (0-0.2); Basophils % (auto) 0.6 %; Eosinophils # (auto) 0.09 K/uL (0-0.50); Eosinophils % (auto) 1.4 %; Hematocrit (blood only) 45.8 % (42.0-52.0); Hemoglobin 15.9 g/dl (14.0-18.0); Immature Granulocytes # (auto) 0.01 K/uL (0.01-0.20); Immature Granulocytes % (auto) 0.2 %; Lymphocytes # (auto) 2.58 K/uL (1.2-3.4); Lymphocytes % (auto) 40.1 %; Mean Corpuscular Hemoglobin 28.5 pg (25.0-34.0); Mean Corpuscular Hgb Conc 34.7 g/dL (32.0-36.0); Mean Corpuscular Volume 82.2 fL (80.0-100.0); Mean Platelet Volume 9.9 fL (9.4-12.4); Monocytes # (auto) 0.49 K/uL (0.11-0.59); Monocytes % (auto) 7.6 %; Neutrophils # (auto) 3.23 K/uL (1.40-6.50); Neutrophils % (auto) 50.1 %; Platelet Count 225 K/uL (130-400); RDW Coefficient of Variation 12.9 % (11.5-14.5); RDW Standard Deviation 38.6 fL (36.4-46.3); Red Blood Count 5.57 M/uL (4.70-6.10); White Blood Count 6.44 K/ul (4.8-10.8)
[2022-12-28 07:47] LABS: BUN Creatinine Ratio 8.9 (10-20); Calcium 8.9 mg/dl (8.6-10.3); Creatinine Clr Calc Pharmacy 131.1 ml/min; Est GFR (African American) 120.1 ml/min; Est GFR (Non-African American) 103.6 ml/min; Potassium 3.8 mmol/L (3.5-5.1)
--- NOTE | 2022-12-28 10:43 | XCELERA ---
[id number]
[2022-12-28] MEDS ORDERED: KETOROLAC TROMETHAMINE 15 MG/ML VIAL IV PRN (16:33)
[2022-12-28] MEDS ORDERED: METOCLOPRAMIDE HCL INJ 5 MG/ML 2 ML VIAL IV PRN (16:33)
[2022-12-28] MEDS ORDERED: KETOROLAC 30 MG/ML VIAL IV ONE (16:33)
[2022-12-28] MEDS ORDERED: diphenhydrAMINE 50 MG/ML VIAL IV PRN (16:33)
[2022-12-28] MEDS ORDERED: MAGNESIUM SULFATE / D5W 1 GM/100 ML BAG IV ONE (16:38)
--- NOTE | 2022-12-28 16:38 | Hospitalist Progress Note ---
Date of Service December 28, 2022 Assessment & Plan (1) Migraine: Plan: with severe throbbing headache across his forehead and face, associated with dizziness with exertion that is not orthostatic With associated photophobia and phonophobia as well as nausea Not responding thus far to Tylenol With family history of migraines in his mother New in onset and ongoing for over 24 hours. Sitting in the dark room makes it better CT angiogram head and neck negative, CT head noncontrast negative Cranial nerve exam is normal -Check brain MRI with and without contrast-some motion artifact but otherwise normal -Give Toradol -Start Reglan and Benadryl together as needed for abortive therapy (2) Dizziness: Plan: Likely associated with migraine Echocardiogram normal, ECG is normal, Vital signs normal Continue to monitor (3) Chest pain: Plan: cardiac work-up all negative Suspect GI source-start Protonix Could also be related to anxiety (4) Depression: Plan: Depression/anxiety Denies active SI/HI. Reports he has had passive thoughts of suicide which is why he presented to the [facility], but more feels he wants treatment of depression and denies current passive or active SI Reports he feels comfortable reaching out if thoughts of SI develop or worsen, and is future oriented with a goal of getting to the [facility] to treat his depression. -He is considering going home instead of back to inpatient psychiatry -we will consult psychiatry for further evaluation (5) Hx of arteriovenous malformation (AVM): Plan: Pulmonary AVM CTA-C: 1. No evidence for an aortic dissection. 2. Dilated main pulmonary artery consistent with pulmonary arterial hypertension. 3. No evidence for a central pulmonary embolus. 4. Incidental note is made of a right middle lobe pulmonary AVM. - CTA-H/N: 1. There is no evidence of hemorrhage, mass effect, or acute territorial ischemia noting angiographic phase technique. 2. Unremarkable CT angiogram of the brain.3. Unremarkable CT angiogram of the neck. - AVM RML pulm 8mm in diameter and patent w/ pHTN - he should be seen for follow-up for shunt studies and coil/embolization. Recommend following up with Pulmonary and IR as outpt -[place] (6) RBBB: Plan: seen on ECG, unclear if new or chronic With dilated pulmonary artery on CT chest consistent with pulmonary hypertension, echocardiogram within normal limits Follow up as an outpatient Plan Disposition-continued stay, patient is now considering going home rather than back to inpatient psychiatry. Consult psych Admission and Anticipated Discharge Date Admission Date: December 27, 2022 Subjective Patient reports ongoing severe headache that started 2 nights ago when he was at the [facility] hospital the pain is waxing and waning a bit but mostly present all across his face and at times down the back of his neck into his back. He has photophobia and phonophobia. He also feels very dizzy anytime he gets up and walks around. He has had nausea intermittently but no vomiting. Denies any fevers or chills, no recent coughs or colds or illnesses. He does not have a history of migraine headaches but has had what sound like tension headaches in the past. No aura noted here. No other focal neurological symptoms. He is still having occasional twinges of sharp stabbing pain in the chest that go away within seconds to minutes. Cardiac work-up has been unrevealing.CT angiogram chest without dissection or PE, but does show his known 8 mm pulmonary AVM. No cough or hemoptysis. No diarrhea or abdominal pains, no urinary symptoms or joint pains. Physical Exam Constitutional: WD/WN, vitals as above Eyes: PERRL, conjunctivae normal, anicteric sclerae no nystagmus ENMT: external ear and nose normal, oropharynx normal Neck: trachea midline, no thyromegaly Respiratory: normal respiratory effort, lungs clear to auscultation Cardiovascular: RRR, no murmur, no edema Chest (Breasts): Chest: normal inspection of chest Gastrointestinal (Abdomen): normal bowel sounds, soft, nontender, no h epatosplenomegaly Musculoskeletal: Extremities: extremities normal to inspection; no cyanosis and no clubbing Skin: no rashes, warm and dry Neurologic: PERRL, EOMI, accommodation nl, no face palsy, no dysarthria CN's II-XI intact bilaterally, moves all extremities and awake; no focal motor deficits Lymphatic: no lymphedema Results & Data Results & Data Vital Signs (Past 12 Hours) Vital Signs Temp Pulse Resp BP Pulse Ox O2 Del Method 12/28/22 15:19 36.8 C 72 18 112/72 95 Room Air 12/28/22 12:14 67 18 112/67 96 Room Air 12/28/22 07:15 36.6 C 63 18 115/68 97 Room Air Laboratory Results BMP, CBC reviewed, troponin negative x2 Diagnostic Findings MRI brain negative PG Care Time/CCT Total # of Minutes Spent Total Time Spent with Patient: Total time spent is greater than 50% in coordination of care (as documented) at patient's floor/unit and/or counseling patient: Coding Level of Care Code 78808 SUB INP/OBS CARE 3/50MIN Diagnoses Migraine G43.909 Dizziness R42 Chest pain R07.9 Depression F32.A Hx of arteriovenous malformation (AVM) Z87.74 RBBB I45.10
[2022-12-28] MEDS: PANTOprazole 40 MG TAB PO SCH (17:13)
[2022-12-28] MEDS ORDERED: GADOBUTROL 10ML VIAL IV ONE (18:06)
--- NOTE | 2022-12-28 18:39 | Magnetic Resonance Report ---
MR brain wo/w con HISTORY: 22 years-old Male new severe headache,r/o mass acute migraine headache COMPARISON: 12/27/2022 TECHNIQUE: Multiplanar multisequence MRI of the brain was obtained both with and without the use of 9 .5 cc IV contrast. FINDINGS: Motion degraded exam. No restricted diffusion. Unremarkable appearance of the imaged midline structur es. No acute intracranial hemorrhage, midline shift, abnormal extra-axial collection, hydrocephalus o r intracranial mass. Cerebral venous sinuses and major arterial flow voids appear patent. Skull, orbi ts and soft tissues are unremarkable. Mastoid air cells and paranasal sinuses are generally clear. No abnormal enhancement. IMPRESSION: 1. Motion degraded exam without acute intracranial abnormality. 2. No abnormal enhancement. ACT 112: Negative or not required by law. The above report was generated using voice recognition software. It may contain grammatical, syntax o r spelling errors. Electronically signed by: Mike Jurado M.D. 12/28/2022 6:36 PM
[2022-12-29] MEDS: PANTOprazole 40 MG TAB PO SCH (10:34)
--- NOTE | 2022-12-29 10:34 | Psychiatric Consultation ---
Date of Consultation December 29, 2022 Impression / Recommendations Impression Diagnostically consistent with unspecified depressive episode with differential including MDD versus adjustment disorder with depressed mood versus BPAD current depressive episode versus PTSD. Given that he is not currently following with a PCP and concern for past episode of possible kristin do not recommend starting an SSRI for depression at this time. He is in agreement with this and with waiting to consider psychiatric medication until he meets with his new outpatient psychiatrist in 2 weeks. He would like to restart trazodone which helped him with insomnia in the past and since he finds this one of the biggest challenges of his depression he feels this would be very helpful. Reviewed side effects including sedation, priapism, increased appetite and black box warning for increased SI and need to stop the medication and seek emergent treatment if he felt unsafe. He doesn't meet involuntary psychiatric commitment criteria for 302 and is not interested in voluntary inpatient psychiatric treatment at the [facility] or elsewhere. Acute risk of self-harm is low given denial of SI, future-oriented, motivated to engage in outpatient care. Chronic risk is also low given no history of prior attempts and good outpatient support from family and roommate. (1) Depression: Plan -Safe for discharge from psychiatric standpoint -Consider starting trazodone 50mg HS prn for insomnia -He has outpatient psychiatry and therapy follow-up later this month -Discussed with Dr. Danielson Psych History Identifying Data 22 yo man with history of depression, PTSD, migraines, insomnia, pulmonary [facility]VM [facility] and possible pre-syncopal symptoms. Psychiatry consulted for disposition recommendations. Chief Complaint "I want to go home". History of Present Illness Don reports going to the [facility] for about 3 days prior to medical admission for depression and passive SI. However, since arriving to the [facility] he's not had any further passive SI, reports last thoughts about 5 days ago, and now that he is nearing medical stability would prefer to go home instead of returning to the [facility]. Discussed that he feels he is no longer in need of inpatient treatment, denies SI, and feels safe returning home. He set himself up [facility] outpatient psychiatry and therapy appointments at [facility] for the end of the month and feels comfortable with outpatient management of his depression. Continues to endorse some depression including insomnia but denies any hopelessness, is future-oriented and feels motivated to engage with outpatient services. Today states his mood is "pretty good". Psychiatric history reviewed and notable for possible episode of kristin during [employer] resulting in being dismissed from the and sent to a local inpatient psychiatric hospital in [place]. States at that time he was diagnosed with PTSD and given medications including trazodone but cannot recall the others. Stopped these shortly after discharge due to lack of insurance. [facility] hospitalization this week was his only other inpatient psych hospitalization. Denies any history of suicide attempts. Has a gun in his apartment but states it is secured in a gun safe and he doesn't know the combination. Counseled that if he began to have thoughts of suicide in the future recommendation would be for a friend or family member to remove the gun from the home which he states understanding and agreement with. Allergies Allergy/AdvReac Type Severity Reaction Status Date / Time methylphenidate AdvReac Muscle Verified 12/27/22 14:03 [From [employer]] twitches Home Medications Medication Instructions Recorded Confirmed Type acetaminophen 500 mg tablet 1,000 mg PO Q6H PRN Pain 12/27/22 12/27/22 History (Tylenol Extra Strength) ibuprofen 800 mg tablet 800 mg PO Q8H PRN pain or migraine 12/29/22 Rx #30 tabs magnesium 250 mg tablet 250 mg PO HS #30 tabs 12/29/22 Rx pantoprazole 40 mg tablet,delayed 40 mg PO QAM #30 tabs 12/29/22 Rx release riboflavin (vitamin B2) 100 mg 100 mg PO DAILY #30 tabs 12/29/22 Rx tablet trazodone 50 mg tablet 50 mg PO HS #30 tabs 12/29/22 Rx Patient History Medical History Depression Hx of arteriovenous malformation (AVM) RBBB Surgical History No pertinent past surgical history Social History Smoking Status: Never smoker Second Hand Exposure: No; Do You Dip or Chew Tobacco: No; Hx Alcohol Use: Yes Alcohol type: beer and hard liquor Hx Substance Use: No Preferred Language: Yakut Communication Ability: Effective Website Developer Required: No Beliefs That Will Affect Care: None Current Living Situation: Other Current Living Situation Comment: lives in trailer with a roommate, admitted from the [facility] Feels Safe at Home: Yes Assistive Devices: None Physical Exam Psychiatric: Orientation: alert and oriented x 3 Apperance: appropriately dressed and appropriately groomed Eye Contact: good eye contact Motor Behavior: no abnormal motor movements Speech: normal rate/rhythm/volume of speech Affect: + constricted affect Mood: + depressed mood; no anxious mood Thought Process: linear/logical thought process Thought Content: r eality based without delusions Suicidal Thoughts: denies suicidal thoughts Homicidal Thoughts: denies homicidal thoughts Hallucinations: no auditory hallucinations and no visual hallucinations Cognition: recent memory grossly intact, remote memory grossly intact, attention grossly intact and language grossly intact Estimated Intelligence: consistent with education level Insight: + fair insight Judgment: + fair judgement Vital Signs (Past 24 Hours): Last Vital Signs Temp 37 C 12/29/22 07:42 Pulse 49 L 12/29/22 07:42 Resp 18 12/29/22 07:42 BP 130/78 12/29/22 07:42 Pulse Ox 95 12/29/22 07:42 O2 Del Method Room Air 12/29/22 07:42 Review of Systems All systems reviewed & are unremarkable except as noted in HPI & below Results & Data (PSY) Medications Administered Acetaminophen (Acetaminophen 325 Mg Tab) 650 mg PO Q4H PRN PRN Reason: pain/fever Stop: 01/26/23 20:19 Last Admin: 12/28/22 19:57 Dose: 650 mg Documented By: LUIS FERNANDO Admin: 12/28/22 11:55 Dose: 650 mg Documented By: Admin: 12/28/22 02:35 Dose: 650 mg Documented By: LUIS FERNANDO Ketorolac Tromethamine (Ketorolac Tromethamine 15 Mg/Ml Vial) 15 mg IV Q6H PRN PRN Reason: Pain Stop: 01/02/23 16:32 Last Admin: 12/29/22 01:32 Dose: 15 mg Documented By: LUIS FERNANDO Pantoprazole Sodium (Pantoprazole 40 Mg Tab) 40 [facility] Stop: 12/31/22 09:01 Last Admin: 12/29/22 10:34 Dose: Not Given Documented By: Admin: 12/28/22 17:13 Dose: 40 mg Documented By: CARMENCITA Coding Level of Care Code 37129 IN/OBS CONSULT LVL 4,60M Diagnoses Depression F32.A Time Spent (min) 65
--- NOTE | 2022-12-29 11:56 | Discharge Summary ---
Discharge Summary Date of Service December 29, 2022 Notes For Next Care Provider Needs outpatient Pulmonology and Interventional Radiology follow up for pulmonary AVM Needs outpatient Psychiatry follow up Needs to get established with a PCP Medication Changes From Visit Added: magnesium oxide 250mg po hs riboflavin 100mg po daily ibuprofen 800mg po q8h prn migraine Protonix 40mg po qAM x 1 month trazodone 50mg po hs Admission HPI Per Admitting Provider Don is a 22-year-old male with history of depression who presents to the [facility]. He presents from [facility] by private vehicle where he was for depression and concerns of passive suicidality, denies active SI/HI and reports he does not have current SI. He notes that he does want to continue treatment for his depression, but this was interrupted by chest pain. He notes that he was seen in [facility] previously for an AVM, but does not know the details regarding this. He reports that he has had lightheadedness and dizziness to some blurred vision on attempted standing and ambulation. Blood pressure is normally in the 120s, is currently in the high 90s. He denies fever, chills, sweats, nausea, vomiting, diarrhea, cough, dysuria, polyuria, diarrhea, constipation. He does endorse intermittent episodes of a feeling of nearly passing out without any room spinning or vertigo which seems to be with exertion but does not always induced By standing up. He reports he has had episodes of severe up to 10/10 chest pain which he attributes to the AVM, while he was walking today and at bedside reports he does not have any chest pain or chest pressure. He has not had any hemoptysis. He reports after Tylenol his initial discomfort improved and again is not in pain at the bedside, it is more his symptoms of nearly passing out which are distressing to him. He does not have any photo or phono sensitivity. His neck does not hurt, and has no pain in his neck on flexion. Denies any limb pain, numbness/tingling. Denies any recent tobacco use, denies recreational substance use, denies vape use. Reports he drinks alcohol intermittently socially, said no alcohol in the last week Medical History: Reviewed Medications: Reviewed Surgical History: Reviewed Family history: Reviewed Allergies: Reviewed Social History: As noted Code Status: Full Principal Dx & Hospital Course #1 = Principal Diagnosis (1) Migraine: with severe throbbing headache across his forehead and face, associated with dizziness with exertion that is not orthostatic With associated photophobia and phonophobia as well as nausea Did not respond to Tylenol, but then greatly improved with IV toradol With family history of migraines in his mother New in onset and ongoing for over 24 hours at time of presentation. Sitting in the dark room makes it better CT angiogram head and neck negative, CT head noncontrast negative Cranial nerve exam is normal Brain MRI with and without contrast-some motion artifact but otherwise normal Improved dc to home with ibuprofen prn, magnesium and riboflavin for migraine prevention lack of sleep due to depression and insomnia likely trigger of migraine--> added trazodone hs (2) Dizziness: Likely associated with migraine Echocardiogram normal, ECG is normal, Vital signs normal resolved (3) Chest pain: cardiac work-up all negative-negative serial troponin, normal ECHO ECG with RBBB and LAFB CTA Chest neg for PE or dissection, but with 8mm AVM and dilated pulmonary artery --> needs outpt PULM follow up Suspect GI source such as esophagitis or gastritis with esophageal spasm-start Protonix and had resolution (4) Depression: Depression/anxiety Denies active SI/HI. Reports he has had passive thoughts of suicide which is why he presented to the [facility], but more feels he wants treatment of depression and denies current passive or active SI Reports he feels comfortable reaching out if thoughts of SI develop or worsen, and is future oriented with a goal of getting to the [facility] to treat his depression. -He is safe for discharge to home instead of back to inpatient psychiatry - consult psychiatry for further evaluation appreciated--> with likely need for SSRI but did not start as inpatient as he is being discharged and has no established PCP. Has appt with Psychiatry in a few weeks and can start then. Of note, he does have a possible history of manic symptoms so caution with SSRI For insomnia and depression---> start trazodone 50mg po hs which he has taken in the past and helped him. No SI/HI, stable for discharge to home (5) Hx of arteriovenous malformation (AVM): Pulmonary AVM CTA-C: 1. No evidence for an aortic dissection. 2. Dilated main pulmonary artery consistent with pulmonary arterial hypertension. 3. No evidence for a central pulmonary embolus. 4. Incidental note is made of a right middle lobe pulmonary AVM. - CTA-H/N: 1. There is no evidence of hemorrhage, mass effect, or acute territorial ischemia noting angiographic phase technique. 2. Unremarkable CT angiogram of the brain.3. Unremarkable CT angiogram of the neck. - AVM RML pulm 8mm in diameter and patent w/ pHTN - he should be seen for follow-up for shunt studies and coil/embolization. Recommend following up with Pulmonary and IR as outpt -he will do this in [place] at [facility] tertiary care (6) RBBB: seen on ECG, unclear if new or chronic With dilated pulmonary artery on CT chest consistent with pulmonary hypertension, echocardiogram within normal limits Follow up as an outpatient with Cardiology and PULM Plan Disposition-dc to home with mother picking him up Discharge Exam Constitutional WD/WN, vitals as above Eyes PERRL, conjunctivae normal, anicteric sclerae no nystagmus ENMT external ear and nose normal, oropharynx normal Neck trachea midline, no thyromegaly Respiratory normal respiratory effort, lungs clear to auscultation Cardiovascular RRR, no murmur, no edema Chest (Breasts) Chest: normal inspection of chest Gastrointestinal (Abdomen) normal bowel sounds, soft, nontender, no hepatosplenomegaly Musculoskeletal Extremities: extremities normal to inspection; no cyanosis and no clubbing Skin no rashes, warm and dry Neurologic PERRL, EOMI, accommodation nl, no face palsy, no dysarthria CN's II-XI intact bilaterally, moves all extremities and awake; no focal motor deficits Lymphatic no lymphedema Updated Medication List Medication Instructions Recorded Confirmed Type acetaminophen 500 mg tablet 1,000 mg PO Q6H PRN Pain 12/27/22 12/27/22 History (Tylenol Extra Strength) ibuprofen 800 mg tablet 800 mg PO Q8H PRN pain or migraine 12/29/22 Rx #30 tabs magnesium 250 mg tablet 250 mg PO HS #30 tabs 12/29/22 Rx pantoprazole 40 mg tablet,delayed 40 mg PO QAM #30 tabs 12/29/22 Rx release riboflavin (vitamin B2) 100 mg 100 mg PO DAILY #30 tabs 12/29/22 Rx tablet trazodone 50 mg tablet 50 mg PO HS #30 tabs 12/29/22 Rx Hospital Stay Data Consultations 12/27/22 15:56 ED Decision to Admit Stat 12/28/22 13:00 Consult Psychiatry Routine Diagnostic Imagining Performed 12/27/22 12:30 CT head/brain wo con Stat 12/27/22 16:04 CT angio head w con Stat CT angio neck with con Stat 12/27/22 16:14 CT angio chest w con Urgent 12/28/22 16:34 MR brain wo/w con Urgent Pending Results Patient Have Any Pending Studies at Discharge: Yes (Anaplasmosis DNA PCR) Discharge Instructions Given to Patient (Per Discharging Provider) You were admitted with a migraine headache with associated dizziness that improved with taking NSAIDs. You had a brain MRI and a CT angiogram of the blood vessels of the neck and head that was all normal. You can continue to take ibuprofen as needed for migraine headaches. You can also start taking magnesium every night and riboflavin which is a B vitamin that can help prevent migraines. Your chest pain was determined to likely be from acid reflux causing inflammation of the esophagus and improved with starting an antacid called Protonix. Please continue taking this once daily x 1 month. For your depression, please keep your appointment as scheduled for Psychiatry in a few weeks. In the meantime, you can start taking trazodone 50mg at bedtime for sleep. For the AVM in your lungs, it is recommended that you first get established with a primary care doctor and then get a referral to a specialist preferably in [place] at [facility] that has capability to treat this. Total Time Total Time Spent Total Time Spent (In Minutes): 40 min Total Time Includes: Examination of the Patient, Discharge Planning, Medication Reconciliation and Communication With Other Providers (Psychiatry) Coding Level of Care Code 37039 INP/OBS DISCH >30 MIN Diagnoses Migraine G43.909 Dizziness R42 Chest pain R07.9 Depression F32.A Hx of arteriovenous malformation (AVM) Z87.74 RBBB I45.10
[2022-12-29] MEDS ORDERED: traZODone HCL 50 MG TAB PO SCH (21:00)
== END 2022-12-29 12:50 | disposition home or self-care (01) ==
LOC: ED 09:56 → 3W 09:56 → SUATTDRO 17:38 → 3W 19:58